=== PATIENT | male | born 1950 | race Caucasian/White ===

== ENCOUNTER 2023-11-08 08:32 | Day surgery (SDC) | payer MEDICARE, OTHER ==
[2023-11-08] MEDS ORDERED: Propofol 200 MG/20 ML SDV IV ONE (08:33)
[2023-11-08] MEDS ORDERED: Midazolam 1 MG/ML 2 ML SDV ONE (08:52)
[2023-11-08] MEDS ORDERED: Propofol 200 MG/20 ML SDV ONE ×2 (08:52→09:41)
[2023-11-08] MEDS ORDERED: Sodium Chloride 0.9% 10 ML Syringe FLUSH PRN (10:00)
[2023-11-08] MEDS ORDERED: Lactated Ringers 1,000 ML IV SCH (10:00)
== END 2023-11-08 11:45 | disposition home or self-care (01) ==
LOC: KA.SDS 08:32
PROVIDERS: ATTEND Family Medicine
DX: Z12.11 Encounter for screening for malignant neoplasm of colon (principal); K57.30 Diverticulosis of large intestine without perforation or abscess without bleeding; K64.8 Other hemorrhoids; I10 Essential (primary) hypertension; E66.9 Obesity, unspecified; E78.2 Mixed hyperlipidemia; E11.9 Type 2 diabetes mellitus without complications; K21.9 Gastro-esophageal reflux disease without esophagitis; Z79.899 Other long term (current) drug therapy; Z68.30 Body mass index [BMI] 30.0-30.9, adult; Z79.84 Long term (current) use of oral hypoglycemic drugs; Z88.8 Allergy status to other drugs, medicaments and biological substances; Z90.49 Acquired absence of other specified parts of digestive tract; Z87.891 Personal history of nicotine dependence
CPT/HCPCS: 82947; J2250; J2704; J7120

== ENCOUNTER 2024-12-13 18:09 | Emergency (ER) | payer MEDICARE, OTHER ==
[2024-12-13] MEDS: Lidocaine 1% 5 ML VIAL INJECT ONE (18:35)
[2024-12-14] MEDS: Lidocaine 1% 5 ML VIAL ONE (10:50)
== END 2024-12-13 19:03 | disposition home or self-care (01) ==
LOC: KA.ED 18:09
DX: S60.450A Superficial foreign body of right index finger, initial encounter (principal); E78.00 Pure hypercholesterolemia, unspecified; E11.9 Type 2 diabetes mellitus without complications; Z90.49 Acquired absence of other specified parts of digestive tract; Z96.659 Presence of unspecified artificial knee joint; Z91.048 Other nonmedicinal substance allergy status; Z79.84 Long term (current) use of oral hypoglycemic drugs; Z79.899 Other long term (current) drug therapy; W45.8XXA Other foreign body or object entering through skin, initial encounter
CPT/HCPCS: 10120; 99283-25; J3490